=== PATIENT | female | born 1995 | race Hispanic/Latino ===

== ENCOUNTER → 2017-07-20 | Day surgery (SDC) | payer BC ==
[2017-07-19 14:18] LABS: BASOPHILS % 0.3 % (0.0-1.0); EOSINOPHILS # (AUTO) 0.1 (0.0-0.4); EOSINOPHILS % 1.9 % (0.0-6.0); HEMATOCRIT 37.7 % (34.2-44.1); HEMOGLOBIN 12.9 g/dL (12.0-16.0); LYMPHOCYTES # (AUTO) 2.3 (1.0-3.2); LYMPHOCYTES % 33.9 % (18.0-39.1); MEAN CORPUSCULAR HEMOGLOBIN 26.9 pg (28-32); MEAN CORPUSCULAR HGB CONC 34.2 g/dL (31-35); MEAN CORPUSCULAR VOLUME 78.7 fL (81-99); MONOCYTES # (AUTO) 0.4 (0.2-0.8); MONOCYTES % 5.1 % (4.4-11.3); NEUTROPHILS % 58.5 % (38.7-80.0); PLATELET COUNT 251 x10e3/uL (140-360); RED BLOOD COUNT 4.79 x10e6/uL (3.6-5.1); RED CELL DISTRIBUTION WIDTH 12.1 % (11.7-14.4)
[2017-07-19 14:35] LABS: ALANINE AMINOTRANSFERASE 47 IU/L (0-55); ALBUMIN 3.6 g/dL (3.5-5.0); ALBUMIN/GLOBULIN RATIO 0.9 (0.8-2.0); ALKALINE PHOSPHATASE 79 IU/L (40-150); ANION GAP 11.8 mmol/L (8-16); BLOOD UREA NITROGEN 11 mg/dL (7-26); BUN/CREATININE RATIO 15 (6-25); CALCIUM 9.5 mg/dL (8.4-10.2); CARBON DIOXIDE 26 mmol/L (22-29); CHLORIDE 104 mmol/L (98-107); CREATININE, SERUM 0.73 mg/dL (0.57-1.11); EST GLOMERULAR FILTRATION RATE > 60 ML/MIN (60-); GLUCOSE 103 mg/dL (74-118); POTASSIUM 3.8 mmol/L (3.5-5.1); SODIUM 138 mmol/L (136-145)
[~2017-07-20] MED LIST: ACETAMINOPHEN 1000 MG/100 ML IV ONE; BUPIVACAINE 0.25%/EPI 30ML SDV INJ ONE; DEXAMETHASONE SOD PHOS INJ 4 MG/ML VIAL ONE; FENTANYL CITRATE/PF 100MCG/2 ML INJ ONE; GLYCOPYRROLATE INJ 1MG/ 5 ML SYR ONE; HYDROCODONE/APAP 7.5MG-325MG 1 EA TAB ONE; LIDOCAINE HCL 2% JELLY 5 ML TUBE ONE; LIDOCAINE HCL 2% LOCAL INJ 5 ML SDV VIAL INJ ONE; MIDAZOLAM HCL 2 MG/2 ML VIAL ONE; NEOSTIGMINE 5 MG/5ML SYR ONE; ONDANSETRON HCL INJ 2 MG/ML VIAL ONE; PROPOFOL IV EMULSION 10 MG/ML 20 ML VIAL ONE; RANITIDINE HCL300 MG PO; ROCURONIUM BROMIDE 10 MG/ML 5ML VIAL ONE; SEVOFLURANE INHAL SOLN 250 ML PEN BTL ONE
--- NOTE | 2017-07-20 19:34 | Operative Report ---
DATE OF PROCEDURE: July 20, 2017 PREOPERATIVE DIAGNOSIS: Cholecystitis and cholelithiasis. POSTOPERATIVE DIAGNOSIS: Cholecystitis and cholelithiasis. OPERATION PERFORMED: Laparoscopic cholecystectomy. LEAD QA ANALYST: Dr. Jim Celaya. ANESTHESIA: General endotracheal. COMPLICATIONS: None. ESTIMATED BLOOD LOSS: Minimal. DESCRIPTION OF PROCEDURE: With the patient lying in bed in the supine position under good general endotracheal anesthesia, the abdomen was prepped with Betadine solution and draped in the usual manner. A Veress needle was introduced into the umbilicus. A pneumoperitoneum was established without any difficulty. An 11 mm trocar was placed into the umbilicus and a 2 mm video laparoscope was placed into the intraabdominal cavity. Under direct vision, three 5 mm trocars were placed in the right subcostal region. Video laparoscopy at this point revealed the gallbladder to have some signs consistent with cholesterolosis and to contain multiple stones. Rest the abdominal exploration was otherwise within normal limits. The peritoneum overlying the neck of the gallbladder was then opened and the cystic duct was identified. Cystic duct was followed to its junction with the common duct. Cystic duct was then circumferentially dissected away from the common duct, doubly clipped and divided. The cystic artery was similarly doubly clipped and divided. Gallbladder was then slowly and carefully taken off the liver bed using the cautery scissors and perfect hemostasis was ascertained. The gallbladder was then grasped through the umbilical port and removed without any difficulty. Video laparoscopy was then carried out. Liver bed was found to be perfectly dry. All of the excess fluid was aspirated. The pneumoperitoneum was evacuated and all the trocars were removed under direct vision. The midline fascia at the umbilicus was then closed with a [id number] of 0 Vicryl. All layers were infiltrated on the way out with solution of 1/4 percent Marcaine. Subcutaneous tissue was approximated with 3-0 Vicryl and the skin was closed with subcuticular 5-0 Vicryl. Benzoin, Steri-Strips and Band-Aids were applied. The sponge, lap and needle count was correct. The patient tolerated the procedure well and returned to the recovery room in stable condition. Job#: [id number]
== END | disposition home or self-care (01) ==
LOC: OR 10:51
PROVIDERS: ATTEND Surgery
DX: K80.10 Calculus of gallbladder with chronic cholecystitis without obstruction (principal); Z01.812 Encounter for preprocedural laboratory examination
CPT/HCPCS: 36415; 47562; 80053; 81025; 85025; 88304; C1766; J1100; J2001 ×2; J2250; J2405

== ENCOUNTER 2017-07-21 19:59 | Emergency (ER) | payer BC ==
[~2017-07-21] VITALS: Ht 157.5 cm; Wt 81.6 kg
[~2017-07-21 19:59] MED LIST changes: -ACETAMINOPHEN 1000 MG/100 ML IV ONE; -BUPIVACAINE 0.25%/EPI 30ML SDV INJ ONE; -DEXAMETHASONE SOD PHOS INJ 4 MG/ML VIAL ONE; -FENTANYL CITRATE/PF 100MCG/2 ML INJ ONE; -GLYCOPYRROLATE INJ 1MG/ 5 ML SYR ONE; -HYDROCODONE/APAP 7.5MG-325MG 1 EA TAB ONE; -LIDOCAINE HCL 2% JELLY 5 ML TUBE ONE; -LIDOCAINE HCL 2% LOCAL INJ 5 ML SDV VIAL INJ ONE; -MIDAZOLAM HCL 2 MG/2 ML VIAL ONE; -NEOSTIGMINE 5 MG/5ML SYR ONE; -ONDANSETRON HCL INJ 2 MG/ML VIAL ONE; -PROPOFOL IV EMULSION 10 MG/ML 20 ML VIAL ONE; -ROCURONIUM BROMIDE 10 MG/ML 5ML VIAL ONE; -SEVOFLURANE INHAL SOLN 250 ML PEN BTL ONE
[2017-07-21] MEDS ORDERED: MORPHINE SULFATE 2 MG/ML SYR IV STA (20:12)
[2017-07-21] MEDS ORDERED: SODIUM CHLORIDE 0.9% 1000ML 1,000 ML IV STA (20:12)
[2017-07-21] MEDS ORDERED: ONDANSETRON HCL 4 MG ORAL DISINTEGRATING TAB PO ONE (20:15)
--- NOTE | 2017-07-21 21:01 | Diagnostic Imaging Report ---
CHEST 2 VIEWS, ABDOMEN COMP INCL UPR or DECUB, Technique: CHEST 2 VIEWS, ABDOMEN COMP INCL UPR or DECUB Comparison: None Clinical history: \S\S/P [place] Y[facility] W/ RIGHT CHEST/SHOULDER PAIN TODAY DISCUSSION: Chest: Normal appearance of the heart, mediastinum, lungs and pleural spaces. Abdomen: Cholecystectomy clips. Nonobstructive bowel gas pattern with mild stool noted within the colon. Trace pneumoperitoneum. IMPRESSION: 1. No acute thoracic and mobility. 2. Trace pneumoperitoneum in keeping with recent surgery. Signed by: Dr Gretel Silva MD on 07/21/2017 8:57 PM
[2017-07-21 21:06] LABS: BASOPHILS % 0.2 % (0.0-1.0); EOSINOPHILS # (AUTO) 0.1 (0.0-0.4); EOSINOPHILS % 0.7 % (0.0-6.0); HEMATOCRIT 39.4 % (34.2-44.1); HEMOGLOBIN 13.3 g/dL (12.0-16.0); LYMPHOCYTES % 30.4 % (18.0-39.1); MEAN CORPUSCULAR HEMOGLOBIN 26.7 pg (28-32); MEAN CORPUSCULAR HGB CONC 33.8 g/dL (31-35); MEAN CORPUSCULAR VOLUME 79.1 fL (81-99); MONOCYTES # (AUTO) 0.6 (0.2-0.8); MONOCYTES % 6.1 % (4.4-11.3); NEUTROPHILS # (AUTO) 6.1 (2.1-6.9); NEUTROPHILS % 62.3 % (38.7-80.0); PLATELET COUNT 294 x10e3/uL (140-360); RED BLOOD COUNT 4.98 x10e6/uL (3.6-5.1); RED CELL DISTRIBUTION WIDTH 12.5 % (11.7-14.4)
[2017-07-21 21:28] LABS: ALANINE AMINOTRANSFERASE 52 IU/L (0-55); ALBUMIN 3.5 g/dL (3.5-5.0); ALBUMIN/GLOBULIN RATIO 0.9 (0.8-2.0); ALKALINE PHOSPHATASE 72 IU/L (40-150); AMYLASE 35 U/L (25-125); ANION GAP 12.8 mmol/L (8-16); BLOOD UREA NITROGEN 17 mg/dL (7-26); BUN/CREATININE RATIO 23 (6-25); CALCIUM 9.6 mg/dL (8.4-10.2); CARBON DIOXIDE 27 mmol/L (22-29); CHLORIDE 100 mmol/L (98-107); CREATINE KINASE 71 IU/L (29-168); CREATININE, SERUM 0.74 mg/dL (0.57-1.11); EST GLOMERULAR FILTRATION RATE > 60 ML/MIN (60-); GLUCOSE 109 mg/dL (74-118); LIPASE 24 U/L (8-78); MAGNESIUM 1.7 MG/DL (1.3-2.1); POTASSIUM 3.8 mmol/L (3.5-5.1); SODIUM 136 mmol/L (136-145)
== END 2017-07-21 22:50 | disposition left against medical advice (07) ==
LOC: ER 19:59
DX: R10.11 Right upper quadrant pain (principal); R10.13 Epigastric pain; K59.00 Constipation, unspecified
CPT/HCPCS: 36415; 71046; 80053; 82150; 82550; 82553; 83690; 83735; 84484; 85025; 99284; J7030; J2270